=== PATIENT | male | born 1985 | race Asian ===

== ENCOUNTER 2017-04-07 22:12 | Emergency (ER) | payer BC, MEDICAID ==
[~2017-04-07] VITALS: Ht 180.3 cm; Wt 83.9 kg
[2017-04-07 22:18] VITALS: BP_SYST 147
[2017-04-07 22:53] LABS: BILIRUBIN,URINE NEGATIVE (NEGATIVE); BLOOD, URINE 3+ (NEGATIVE); CLARITY/URINE CLEAR (CLEAR); COLOR,URINE YELLOW (YELLOW); GLUCOSE,URINE NEGATIVE (NEGATIVE); KETONES,URINE NEGATIVE (NEGATIVE); LEUKOCYTE ESTERASE ,URINE NEGATIVE (NEGATIVE); NITRITE, URINE NEGATIVE (NEGATIVE); PROTEIN URINE NEGATIVE (NEGATIVE); UROBILINOGEN,URINE 0.2 (0.2-1.0)
[2017-04-07 22:55] LABS: BACTERIA,URINE FEW /HPF (None Seen); MUCUS,URINE None Seen /LPF (None Seen); WBC,URINE 0-3 /HPF (0-3)
[2017-04-07 23:37] VITALS: BP_SYST 143
== END 2017-04-07 23:37 | disposition home or self-care (01) ==
LOC: SED 22:12
DX: N20.1 Calculus of ureter (principal); Z87.442 Personal history of urinary calculi
CPT/HCPCS: 81000-TC; 99285

== ENCOUNTER 2020-12-07 14:41 | Emergency (ER) | payer BC, MEDICAID, OTHER ==
[~2020-12-07] VITALS: Ht 172.7 cm; Wt 79.4 kg
[2020-12-07 15:19] VITALS: BP_SYST 134
[2020-12-07 15:54] LABS: BASOPHILS # (AUTO) 0.1 K/uL (0.0-0.2); BASOPHILS % (AUTO) 0.7 % (0.0-2.0); EOSINOPHILS # (AUTO) 0.1 K/uL (0.0-0.4); HEMATOCRIT 44.7 % (36-54); HEMOGLOBIN 15.2 g/dL (14.0-18.0); LYMPHOCYTES # (AUTO) 1.8 K/uL (1.0-5.5); MEAN CORPUSCULAR HEMOGLOBIN 30 pg (27-31); MEAN CORPUSCULAR HGB CONC 34 % (32-36); MEAN CORPUSCULAR VOLUME 88 fL (79.0-98.0); MONOCYTES # (AUTO) 0.4 K/uL (0.0-1.0); MONOCYTES % (AUTO) 6.4 % (1.7-9.3); NEUTROPHILS # (AUTO) 4.4 K/uL (1.8-7.7); NEUTROPHILS % (AUTO) 64.9 % (40.0-70.0); PLATELET COUNT (AUTO) 256 K/uL (130-430); RED CELL DISTRIBUTION WIDTH 13.4 % (9.0-15.0); WHITE BLOOD COUNT (AUTO) 6.7 K/uL (4.8-10.8)
[2020-12-07 16:18] LABS: CALCIUM 9.7 mg/dL (8.4-11.0); CREATININE 1.07 mg/dL (0.55-1.30); POTASSIUM 3.6 mmol/L (3.5-5.1)
[2020-12-07 16:29] LABS: PROTHROMBIN TIME 10.1 SECS (9.5-12.5)
[2020-12-07 16:48] LABS: ALBUMIN 4.4 g/dL (3.4-4.8); FREE T4 (FREE THYROXINE) 0.8 ng/dL (0.6-1.6); THYROID STIMULATING HORMONE 0.99 uIu/mL (0.34-4.82); TOTAL BILIRUBIN 0.6 mg/dL (0.0-1.0)
[2020-12-07] MEDS: ATENOLOL 50 MG TABLET (TENORMIN) PO ONE (17:15)
[2020-12-07] MEDS ORDERED: ATEN-41 PO (17:51)
[2020-12-07 18:09] VITALS: BP_SYST 143
== END 2020-12-07 18:09 | disposition home or self-care (01) ==
LOC: SED 14:41
DX: R00.2 Palpitations (principal); K21.9 Gastro-esophageal reflux disease without esophagitis; Z79.899 Other long term (current) drug therapy
CPT/HCPCS: 36415; 71045; 80053; 84439; 84443; 84484; 85025; 85610-TC; 85730-TC; 93005; 99285

== ENCOUNTER 2021-12-06 06:57 | Emergency (ER) | payer MEDICAID ==
[~2021-12-06] VITALS: Ht 180.3 cm; Wt 88.5 kg
[2021-12-06 06:57] VITALS: BP_SYST 140
[~2021-12-06 06:57] MED LIST: ATEN-41 PO
--- NOTE | 2021-12-06 06:57 | NUR ---
ER at bedside examining patient.
[2021-12-06] MEDS ORDERED: NAPR-1172 PO (07:09)
[2021-12-06 07:15] VITALS: BP_SYST 140
--- NOTE | 2021-12-06 07:15 | NUR ---
Patient given written and verbal discharge instructions and verbalizes understanding. ER MD discussed with patient the results and care provided. Patient in stable condition. ID arm band removed by Dr Herrera. Rx of Naprosyn given. Patient educated on pain management and to follow up with PMD. Pain Scale 5/10. Opportunity for questions provided and answered by Dr Herrera.
[2021-12-06] MEDS ORDERED: CEFEPIME 1 GM/VIAL (MAXIPIME) ONE (16:39)
== END 2021-12-06 07:15 | disposition home or self-care (01) ==
LOC: SED 06:57
DX: M94.0 Chondrocostal junction syndrome [Tietze] (principal); R07.89 Other chest pain; K21.9 Gastro-esophageal reflux disease without esophagitis; Z79.899 Other long term (current) drug therapy
CPT/HCPCS: 99283; 93005; J0692

== ENCOUNTER 2023-05-06 07:02 | Emergency (ER) | payer MEDICAID ==
[~2023-05-06] VITALS: Ht 180.3 cm; Wt 100.7 kg
[~2023-05-06 07:02] MED LIST changes: +NAPR-1172 PO
[2023-05-06 07:09] VITALS: BP_SYST 153; PULSE 100; RESP 21; TEMP 97.9; O2SAT 96
[2023-05-06] MEDS ORDERED: KETOROLAC TROMETHAMINE 15 MG VIAL IVP ONE (07:30)
[2023-05-06 07:48] LABS: BASOPHILS % (AUTO) 0.6 % (0.0-2.0); EOSINOPHILS # (AUTO) 0.3 K/uL (0.0-0.4); EOSINOPHILS % (AUTO) 4.7 % (0.0-4.0); HEMATOCRIT 42.8 % (36-54); HEMOGLOBIN 14.8 g/dL (14.0-18.0); LYMPHOCYTES # (AUTO) 2.3 K/uL (1.0-5.5); LYMPHOCYTES % (AUTO) 35.4 % (20.5-51.5); MEAN CORPUSCULAR HEMOGLOBIN 30 pg (27-31); MEAN CORPUSCULAR HGB CONC 35 % (32-36); MEAN CORPUSCULAR VOLUME 88 fL (79.0-98.0); MONOCYTES # (AUTO) 0.4 K/uL (0.0-1.0); MONOCYTES % (AUTO) 6.3 % (1.7-9.3); NEUTROPHILS # (AUTO) 3.4 K/uL (1.8-7.7); PLATELET COUNT (AUTO) 221 K/uL (130-430); RED BLOOD CELL COUNT(AUTO) 4.87 MIL/uL (4.2-6.2); RED CELL DISTRIBUTION WIDTH 13.6 % (9.0-15.0); WHITE BLOOD COUNT (AUTO) 6.5 K/uL (4.8-10.8)
[2023-05-06 07:59] LABS: ANION GAP 11 (5-15); CALCIUM 9.2 mg/dL (8.4-11.0); CARBON DIOXIDE 28 mmol/L (23-29); CHLORIDE 101 mmol/L (98-107); CREATININE 0.98 mg/dL (0.55-1.30); GFR AFRICAN AMERICAN 111 mL/min (>90); GLUCOSE 152 mg/dL (74-106); POTASSIUM 4.1 mmol/L (3.5-5.1); SODIUM SERUM 140 mmol/L (136-145); UREA NITROGEN, BLOOD 14 mg/dL (8-21)
[2023-05-06 08:02] LABS: GFR NON AFRICAN-AMERICAN 92 mL/min (>90)
[2023-05-06 08:06] LABS: ALANINE AMINOTRANSFERASE 156 U/L (12-78); ALBUMIN 4.5 g/dL (3.4-4.8); ALCOHOL, BLOOD < 3 mg/dL (<10); ASPARTATE AMINOTRANSFERASE 64 U/L (10-37); BILIRUBIN,DIRECT 0.1 mg/dL (0.0-0.3); TOTAL BILIRUBIN 0.7 mg/dL (0.0-1.0); TOTAL PROTEIN, SERUM 8.1 g/dL (6.4-8.3)
[2023-05-06] MEDS ORDERED: PANT20TA2 PO (08:59)
[2023-05-06 09:13] LABS: BARBITURATE, URINE NEGATIVE (NEG <=200)
[2023-05-06 09:14] LABS: BENZODIAZEPINE, URINE NEGATIVE (NEG <=150); CANNABINOID, URINE NEGATIVE (NEG <=50); COCAINE, URINE NEGATIVE (NEG <=150); METHAMPHETAMINES SCREEN,URINE NEGATIVE (NEG <=500); PHENCYCLIDINE SCREEN,URINE NEGATIVE (NEG <=25); URINE AMPHETAMINE NEGATIVE (NEG <=500); URINE METHADONE NEGATIVE (NEG <=200)
[2023-05-06 09:15] LABS: OPIATE, URINE NEGATIVE (NEG <=100); UR TRICYCLIC ANTIDEPRESSANTS NEGATIVE (NEG <=300); URINE OXYCODONE SCREEN NEGATIVE (NEG <=100)
[2023-05-06 09:16] VITALS: BP_SYST 144; PULSE 95; RESP 16; TEMP 97.8; O2SAT 97
== END 2023-05-06 09:18 | disposition home or self-care (01) ==
LOC: SED 07:02
DX: R07.9 Chest pain, unspecified (principal); R74.01 Elevation of levels of liver transaminase levels; R03.0 Elevated blood-pressure reading, without diagnosis of hypertension; K21.9 Gastro-esophageal reflux disease without esophagitis; Z86.79 Personal history of other diseases of the circulatory system; Z79.899 Other long term (current) drug therapy
CPT/HCPCS: 99285; 71045; 80307; 80076; 80048; 83880; 85025; 85379; 84484; 36415; 93005; G0482

== ENCOUNTER 2023-11-12 06:57 | Emergency (ER) | payer OTHER ==
[~2023-11-12] VITALS: Ht 180.3 cm; Wt 99.3 kg
[~2023-11-12 06:57] MED LIST changes: +HYDR-3917 PO; +IBUP-1971 PO; +PANT20TA2 PO; +TAMS-11 PO
[2023-11-12 07:13] VITALS: BP_SYST 144; PULSE 90; RESP 16; TEMP 97.6; O2SAT 97
[2023-11-12 08:13] LABS: BASOPHILS # (AUTO) 0.1 K/uL (0.0-0.2); BASOPHILS % (AUTO) 0.8 % (0.0-2.0); EOSINOPHILS # (AUTO) 0.4 K/uL (0.0-0.4); EOSINOPHILS % (AUTO) 4.9 % (0.0-4.0); HEMATOCRIT 42.9 % (36-54); HEMOGLOBIN 14.3 g/dL (14.0-18.0); LYMPHOCYTES # (AUTO) 2.1 K/uL (1.0-5.5); LYMPHOCYTES % (AUTO) 29.3 % (20.5-51.5); MEAN CORPUSCULAR HEMOGLOBIN 29 pg (27-31); MEAN CORPUSCULAR HGB CONC 33 % (32-36); MEAN CORPUSCULAR VOLUME 88 fL (79.0-98.0); MONOCYTES # (AUTO) 0.6 K/uL (0.0-1.0); MONOCYTES % (AUTO) 8.2 % (1.7-9.3); NEUTROPHILS # (AUTO) 4.1 K/uL (1.8-7.7); NEUTROPHILS % (AUTO) 56.8 % (40.0-70.0); PLATELET COUNT (AUTO) 271 K/uL (130-430); RED BLOOD CELL COUNT(AUTO) 4.88 MIL/uL (4.2-6.2); RED CELL DISTRIBUTION WIDTH 14.3 % (9.0-15.0); WHITE BLOOD COUNT (AUTO) 7.3 K/uL (4.8-10.8)
[2023-11-12 08:14] LABS: BILIRUBIN,URINE NEGATIVE (NEGATIVE); BLOOD, URINE 3+ (NEGATIVE); CLARITY/URINE CLEAR (CLEAR); COLOR,URINE YELLOW (YELLOW); GLUCOSE,URINE NEGATIVE (NEGATIVE); KETONES,URINE NEGATIVE (NEGATIVE); LEUKOCYTE ESTERASE ,URINE NEGATIVE (NEGATIVE); NITRITE, URINE NEGATIVE (NEGATIVE); PROTEIN URINE NEGATIVE (NEGATIVE); UROBILINOGEN,URINE 0.2 (0.2-1.0)
[2023-11-12 08:36] LABS: ALBUMIN 4.8 g/dL (3.4-4.8); CALCIUM 9.6 mg/dL (8.4-11.0); CREATININE 1.13 mg/dL (0.55-1.30); TOTAL BILIRUBIN 0.6 mg/dL (0.0-1.0); TOTAL PROTEIN, SERUM 8.2 g/dL (6.4-8.3)
[2023-11-12 08:43] LABS: PROTHROMBIN TIME 10.2 SECS (9.5-12.5)
[2023-11-12 08:46] LABS: BILIRUBIN,DIRECT 0.2 mg/dL (0.0-0.3)
[2023-11-12 08:57] LABS: BACTERIA,URINE None Seen /HPF (None Seen); MUCUS,URINE 1+ /LPF (None Seen); RBC,URINE 20-50 /HPF (0-3); WBC,URINE 0-3 /HPF (0-3)
[2023-11-12] MEDS ORDERED: IBUP-1971 PO (09:13)
[2023-11-12] MEDS ORDERED: HYDR-3917 PO (09:13)
[2023-11-12 09:22] VITALS: BP_SYST 144; PULSE 90; RESP 16; TEMP 97.6; O2SAT 97
== END 2023-11-12 09:23 | disposition home or self-care (01) ==
LOC: SED 06:57
DX: N20.0 Calculus of kidney (principal); R10.30 Lower abdominal pain, unspecified; R31.9 Hematuria, unspecified; R33.9 Retention of urine, unspecified; K21.9 Gastro-esophageal reflux disease without esophagitis; Z91.013 Allergy to seafood; Z79.899 Other long term (current) drug therapy; Z79.2 Long term (current) use of antibiotics
CPT/HCPCS: 36415; 80048; 80076; 81000; 81001; 81015; 82150; 83605; 83690; 85025; 85610; 85730; 99284